=== PATIENT | male | born 1985 | race Two or more races ===

== ENCOUNTER 2017-01-14 10:11 | Emergency (ER) | payer MEDICAID ==
[~2017-01-14] VITALS: Ht 165.1 cm; Wt 81.6 kg
[2017-01-14 11:04] VITALS: BP 143/93
== END 2017-01-14 11:33 | disposition home or self-care (01) ==
LOC: ER 10:11
DX: G89.29 Other chronic pain (principal); M79.604 Pain in right leg; K21.9 Gastro-esophageal reflux disease without esophagitis; F32.9 Major depressive disorder, single episode, unspecified; Z76.0 Encounter for issue of repeat prescription

== ENCOUNTER 2023-12-13 14:51 | Emergency (ER) | payer MEDICAID, OTHER ==
[~2023-12-13] VITALS: Ht 165.1 cm; Wt 89.4 kg
[2023-12-13 16:14] VITALS: BP 129/83; PULSE 82; RESP 17; TEMP 99.6; O2SAT 100
[2023-12-13] MEDS: HYDROcodone-ACET 10/325MG TAB PO ONE (17:01)
[2023-12-13 17:04] LABS: Amphetamine Screen, Urine Neg (NEGATIVE); Barbiturate Scree,Urine Neg (NEGATIVE); Benzodiazephine Screen, Urine Neg (NEGATIVE); Cannabinoid Screen, Urine Neg (NEGATIVE); Cocaine Screen, Urine Neg (NEGATIVE); Opiate Scree,Urine Neg (NEGATIVE); Phencyclidine Screen, Urine Neg (NEGATIVE)
[2023-12-13] MEDS ORDERED: METH-1182 PO (17:47)
== END 2023-12-13 17:59 | disposition home or self-care (01) ==
LOC: ER 14:51
DX: S30.1XXA Contusion of abdominal wall, initial encounter (principal); Z79.899 Other long term (current) drug therapy; V43.52XA Car driver injured in collision with other type car in traffic accident, initial encounter; Y93.89 Activity, other specified; Y92.89 Other specified places as the place of occurrence of the external cause; Y99.8 Other external cause status
CPT/HCPCS: 36415; 74176; 80307; 80320